=== PATIENT | male | born 1985 | race African-American/Black ===

== ENCOUNTER 2016-07-16 07:12 | Emergency (ER) | payer OTHER ==
[~2016-07-16] VITALS: Ht 188 cm; Wt 113.4 kg
[~2016-07-16 07:12] MED LIST: BENADRYL50 MG ORAL; CYCLOBENZAPRINE10 MG ORAL; IBUPROFEN600 MG ORAL; IBUPROFEN800 MG ORAL; NAPROXEN375 MG ORAL; NKM; NORCO 5-325 TA1 EACH ORAL; PERCOCET 5-3251 EACH ORAL; PREDNISONE20 MG ORAL
[2016-07-16 07:20] VITALS: BP 97/60
[2016-07-16] MEDS ORDERED: IBUPROFEN800 MG ORAL (08:07)
[2016-07-16] MEDS ORDERED: NORCO 5-325 TA1 EACH ORAL (08:07)
[2016-07-16 08:21] VITALS: BP 97/60
--- NOTE | 2016-07-16 09:03 | Emergency Room Report ---
History of Present Illness General Chief Complaint: Upper Extremity Injury Source: Patient Present Illness HPI 31-year-old male presents ED complaining of left finger pain and swelling. 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 States last night a patron twisted his left fifth finger and he heard a pop. Patient is unsure of he dislocated his finger. Notes pain and swelling to left fifth finger. Pain is throbbing, 10 out of 10, nonradiating. Unable to bend the finger. No other aggravating or relieving factors. Denies any other injuries. Denies any other associated symptoms Allergies: Coded Allergies: No Known Allergies (Unverified , 11/22/13) Patient History Past Medical History: none Past Surgical History: none Pertinent Family History: none Social History: Denies: alcohol use, drug use, smoking Immunizations: UTD Reviewed Nursing Documentation: PMH: Agreed, PSxH: Agreed Nursing Documentation-PMH Past Medical History: No Stated History Review of Systems All Other Systems: negative except mentioned in HPI Physical Exam Vital Signs Date Time Temp Pulse Resp B/P Pulse Ox O2 Delivery O2 Flow Rate FiO2 07/16/16 07:16 97.3 96 16 97/60 99 Room Air Sp02 EP Interpretation: reviewed, normal General Appearance: no apparent distress, alert, GCS 15, non-toxic Head: normocephalic Eyes: bilateral eye PERRL, bilateral eye normal inspection ENT: normal ENT inspection Neck: normal inspection Respiratory: normal inspection Cardiovascular #1: normal inspection Gastrointestinal: normal inspection Rectal: deferred Genitourinary: no CVA tenderness Musculoskeletal: swelling - L 5th finger Neurologic: alert, oriented x3, responsive, motor strength/tone normal, sensory intact, speech normal Psychiatric: normal inspection Skin: normal inspection Lymphatic: normal inspection Procedures Splinting Splinting : Consent: Verbal Hand-Made Type: plaster Splint: ulnar Pre-Proc Neuro Vasc Exam: normal Post-Proc Neuro Vasc Exam: normal Patient Tolerated: Well Complications: None Medical Decision Making Diagnostic Impression: Primary Impression: Finger fracture Qualified Codes: S62.645A - Nondisplaced fracture of proximal phalanx of left ring finger, initial encounter for closed fracture ER Course Hospital Course 31-year-old M presents to ED complaining of L finger pain/swelling Differential diagnoses include: Fracture, dislocation, sprain, contusion Clinical course Patient placed on stretcher. After initial history and physical, I ordered pain medications and Xrays of L hand Xrays prelim read shows comminuted fx of L proximal phalanx. placed in ulnar gutter Diagnosis -finger fx Stable and discharged to home with prescription for Motrin, [place]. apply ice, keep elevated. weight bear as tolerated. Followup with PMD. Return to ED if symptoms recur or worsen Other X-Ray Diagnostic Results Other X-Ray Diagnostic Results : X-Ray Ordered: L hand EP Interpretation: Yes Findings: no dislocation, other - comminuted fx proximal phalanx Number of Views: 3 Last Vital Signs Date Time Temp Pulse Resp B/P Pulse Ox O2 Delivery O2 Flow Rate FiO2 07/16/16 08:21 97.3 96 16 97/60 99 Room Air Status: improved Disposition: HOME, SELF-CARE Condition: Stable Scripts Hydrocodone Bit/Acetaminophen 5-325* (NORCO 5-325*) 1 Each Tablet 1 TAB ORAL Q6H Y for For Pain, #10 TAB 0 Refills Prov: JOLLY VELARDE M.D. 07/16/16 Ibuprofen* (MOTRIN*) 800 Mg Tablet 800 MG ORAL Q8H, #30 TAB 0 Refills Prov: JOLLY VELARDE M.D. 07/16/16 Referrals: Kb STARR,REFERRING JOSE LUIS GARRETT PERRY M.D. Patient Instructions: Finger Fracture, [id number] JOLLY VELARDE M.D. Jul 16, 2016 09:03
--- NOTE | 2016-07-16 09:05 | Diagnostic Imaging Report ---
Indication: Left hand pain Technique: Left hand 3 views Comparison: None Findings: There is a markedly comminuted fracture involving the fifth proximal phalanx with proximal intra-articular extension. Soft tissue swelling is noted. Impression: Markedly comminuted fracture involving the fifth proximal phalanx.
== END 2016-07-16 08:21 | disposition home or self-care (01) ==
LOC: EMR 07:31
DX: S62.645A Nondisplaced fracture of proximal phalanx of left ring finger, initial encounter for closed fracture (principal); W50.2XXA Accidental twist by another person, initial encounter; Y92.89 Other specified places as the place of occurrence of the external cause; Y99.0 Civilian activity done for income or pay
CPT/HCPCS: 99284

== ENCOUNTER 2017-10-29 09:30 | Emergency (ER) | payer OTHER ==
[~2017-10-29] VITALS: Ht 188 cm; Wt 117.9 kg
[2017-10-29 10:11] LABS: BASOPHILS % (AUTO) 2.3 % (0.0-2.0); HEMOGLOBIN 13.9 G/DL (14.2-18.0); LYMPHOCYTES % (AUTO) 26.9 % (20.0-45.0); MEAN CORPUSCULAR VOLUME 87 FL (80-99); MONOCYTES % (AUTO) 8.7 % (1.0-10.0); NEUTROPHILS % (AUTO) 62.1 % (45.0-75.0); PLATELET COUNT 253 K/UL (150-450); RED BLOOD COUNT 4.96 M/UL (4.70-6.10); RED CELL DISTRIBUTION WIDTH 11.8 % (11.6-14.8); WHITE BLOOD COUNT 6.6 K/UL (4.8-10.8)
[2017-10-29] MEDS ORDERED: Morphine Sulfate 4mg/ml Inj IVP ONE (10:15)
[2017-10-29] MEDS ORDERED: Isovue-300 100ml vial INJ PRN (11:00)
[2017-10-29 11:07] LABS: ANION GAP 12 mmol/L (5-15); BLOOD UREA NITROGEN 13 mg/dL (7-18); CALCIUM 8.3 MG/DL (8.5-10.1); CARBON DIOXIDE 26 MMOL/L (21-32); CHLORIDE 101 MMOL/L (98-107); CREATININE 1.1 MG/DL (0.55-1.30); POTASSIUM 3.5 MMOL/L (3.5-5.1); SODIUM 139 MMOL/L (136-145)
[2017-10-29 11:10] LABS: ALANINE AMINOTRANSFERASE 42 U/L (12-78); ALBUMIN 3.9 G/DL (3.4-5.0); ALBUMIN/GLOBULIN RATIO 1.3 (1.0-2.7); ALKALINE PHOSPHATASE 64 U/L (46-116); ASPARTATE AMINO TRANSFERASE 20 U/L (15-37); BILIRUBIN,TOTAL 0.7 MG/DL (0.2-1.0)
[2017-10-29 11:30] VITALS: BP 150/93
--- NOTE | 2017-10-29 12:02 | Emergency Room Report ---
History of Present Illness General Chief Complaint: Abdominal Pain Source: Patient Present Illness HPI This patient states that 2 days ago he developed upper abdominal pain. He states that he also had nausea and vomiting. He did admit that he had drank quite alcohol quite a bit the night before. He also smokes marijuana daily. He thought possibly that he was hung over. However, he had an interim time where he was feeling better and then the symptoms returned last night. He has had nausea, vomiting and abdominal pain. He states he has had normal bowel movements. He denies diarrhea. He denies fever or chills. He has no other complaints. Allergies: Coded Allergies: No Known Allergies (Unverified , 11/22/13) Patient History Past Medical History: none Social History: Reports: alcohol use, drug use Reviewed Nursing Documentation: PMH: Agreed; PSxH: Agreed Nursing Documentation-PMH Past Medical History: No Stated History Review of Systems All Other Systems: negative except mentioned in HPI Physical Exam Vital Signs Date Time Temp Pulse Resp B/P (MAP) Pulse Ox O2 Delivery O2 Flow Rate FiO2 10/29/17 09:33 98.0 69 18 127/79 98 Room Air 98.1 Sp02 EP Interpretation: reviewed, normal General Appearance: no apparent distress, alert, GCS 15, non-toxic Head: normocephalic, atraumatic Eyes: bilateral eye normal inspection, bilateral eye PERRL ENT: hearing grossly normal, normal pharynx, no angioedema, normal voice Neck: full range of motion, supple/symm/no masses Respiratory: chest non-tender, lungs clear, normal breath sounds, speaking full sentences Cardiovascular #1: regular rate, rhythm, no edema Gastrointestinal: normal bowel sounds, soft, non-distended, no guarding, no rebound, tenderness - TTP in the epigastrium Rectal: deferred Musculoskeletal: back normal, normal range of motion Neurologic: alert, oriented x3, responsive, motor strength/tone normal, sensory intact, speech normal Psychiatric: judgement/insight normal, memory normal, mood/affect normal, no suicidal/homicidal ideation Skin: normal color, no rash, warm/dry, well hydrated Medical Decision Making Diagnostic Impression: Primary Impression: Abdominal pain ER Course This patient has severe abdominal pain. He also had nausea or vomiting. He he regularly uses marijuana. I suspect cannabis hyperemesis syndrome. However, the patient did require IV morphine for his pain. I felt I should rule out an intra-abdominal process. He underwent CT of the abdomen and pelvis which shows no evidence of appendicitis or diverticulitis. The patient is pending ultrasound of the right upper quadrant to further assess his gallbladder. I anticipate that this will be normal. If this is the case, I anticipate discharge home with capsaicin cream and treatment for gastritis. If there is a change to this plan, an addendum will be made to this note based on results of right upper quadrant ultrasound. Laboratory Tests Test 10/29/17 09:45 White Blood Count 6.6 K/UL (4.8-10.8) Red Blood Count 4.96 M/UL (4.70-6.10) Hemoglobin 13.9 G/DL (14.2-18.0) L Hematocrit 43.0 % (42.0-52.0) Mean Corpuscular Volume 87 FL (80-99) Mean Corpuscular Hemoglobin 28.1 PG (27.0-31.0) Mean Corpuscular Hemoglobin Concent 32.4 G/DL (32.0-36.0) Red Cell Distribution Width 11.8 % (11.6-14.8) Platelet Count 253 K/UL (150-450) Mean Platelet Volume 9.2 FL (6.5-10.1) Neutrophils (%) (Auto) 62.1 % (45.0-75.0) Lymphocytes (%) (Auto) 26.9 % (20.0-45.0) Monocytes (%) (Auto) 8.7 % (1.0-10.0) Eosinophils (%) (Auto) 0.0 % (0.0-3.0) Basophils (%) (Auto) 2.3 % (0.0-2.0) H Sodium Level 139 MMOL/L (136-145) Potassium Level 3.5 MMOL/L (3.5-5.1) Chloride Level 101 MMOL/L (98-107) Carbon Dioxide Level 26 MMOL/L (21-32) Anion Gap 12 mmol/L (5-15) Blood Urea Nitrogen 13 mg/dL (7-18) Creatinine 1.1 MG/DL (0.55-1.30) Estimate Glomerular Filtration Rate > 60 mL/min (>60) Glucose Level 114 MG/DL (74-106) H Calcium Level 8.3 MG/DL (8.5-10.1) L Total Bilirubin 0.7 MG/DL (0.2-1.0) Aspartate Amino Transferase (AST) 20 U/L (15-37) Alanine Aminotransferase (ALT) 42 U/L (12-78) Alkaline Phosphatase 64 U/L (46-116) Total Protein 7.0 G/DL (6.4-8.2) Albumin 3.9 G/DL (3.4-5.0) Globulin 3.1 g/dL Albumin/Globulin Ratio 1.3 (1.0-2.7) Lipase 86 U/L (73-393) CT/MRI/US Diagnostic Results CT/MRI/US Diagnostic Results : Imaging Test Ordered: CT abd/pelvis, US RUQ Impression CT abd/pelvis: No acute findings. See official report. Last Vital Signs Date Time Temp Pulse Resp B/P (MAP) Pulse Ox O2 Delivery O2 Flow Rate FiO2 10/29/17 11:30 56 18 150/93 98 Room Air 10/29/17 09:33 98.0 98.1 Scripts No Active Prescriptions or Reported Meds Referrals: Kb STARR,REFERRING (PCP) Patient Instructions: Abdominal Pain, Adult Juany Butterfield DO Oct 29, 2017 12:02
--- NOTE | 2017-10-29 12:16 | Diagnostic Imaging Report ---
Indication: Abdominal pain Technique: CT of the abdomen and pelvis utilizing automated exposure control with intravenous contrast. Venous scanning performed. Axial, sagittal and coronal reformats presented. CT dose: Total DLP 1092.16 mGycm; CTDI vol 18.4 mGy Comparison: None. Correlation made to CT angiogram of the chest 11/25/2013 Findings: Dependent atelectasis noted in the right lower lobe. Heart size within normal limits. No pericardial effusion. There is elevation of the right hemidiaphragm. Liver is normal in size and contour. No focal hepatic mass lesion is appreciated on this single phase exam. Gallbladder is unremarkable in appearance. No CT evident gallstones or evidence of pericholecystic inflammatory change. No biliary ductal dilatation. Spleen, adrenal glands and pancreas unremarkable. A subcentimeter low-attenuation well-circumscribed lesion is noted in the midpole the right kidney too small to fully characterize but likely representing a simple renal cyst. Kidneys otherwise enhance symmetrically. No urinary tract stone or hydronephrosis bilaterally. The bladder is decompressed, limiting its evaluation. Prostate is normal in size. There is no evidence of bowel obstruction or inflammation. Apparent thickening of portions of the proximal transverse colon likely related to underdistention. Some appendicoliths are noted within the appendix, which is normal in caliber and without evidence of surrounding inflammatory change. No free intraperitoneal fluid or air. No pathologically enlarged lymphadenopathy. Abdominal aorta normal in caliber. No acute osseous abnormality seen. IMPRESSION: No evidence of bowel obstruction or inflammation. Appendicolith noted within a normal caliber appendix. No periappendiceal inflammatory change to suggest appendicitis. No urinary tract stones or hydronephrosis. Underdistention versus thickening of the bladder wall. Correlate with urinalysis. The CT scanner at [facility] is accredited by the [employer] and the scans are performed using protocols designed to limit radiation exposure to as low as reasonably achievable to attain images of sufficient resolution adequate for diagnostic evaluation.
[2017-10-29 13:03] LABS: APPEARANCE,URINE CLEAR; BILIRUBIN, URINE NEGATIVE (NEGATIVE); COLOR,URINE PALE YELLOW; GLUCOSE, URINE (UA) NEGATIVE (NEGATIVE); KETONES,URINE NEGATIVE (NEGATIVE); LEUKOCYTE ESTERASE ,URINE NEGATIVE (NEGATIVE); NITRITE,URINE NEGATIVE (NEGATIVE); PH,URINE 8 (4.5-8.0); PROTEIN,URINE NEGATIVE (NEGATIVE); UROBILINOGEN,URINE NORMAL MG/DL (0.0-1.0)
[2017-10-29 13:44] VITALS: BP 146/86
[2017-10-29] MEDS ORDERED: Capsaicin 0.075% Cream TOPIC ONE (14:15)
[2017-10-29] MEDS ORDERED: PEPCID AC20 M2 PO (14:43)
[2017-10-29] MEDS ORDERED: CAPSAICIN60 GM TP (14:43)
[2017-10-29] MEDS ORDERED: MAALOX MAXIMUM355 M1 PO (14:43)
[2017-10-29 15:30] VITALS: BP 118/76
--- NOTE | 2017-10-29 17:05 | Diagnostic Imaging Report ---
Indication: Abdominal pain Technique: US ABD Complete Comparison: Compare is made to concurrent CT of the abdomen and pelvis Findings: Imaged portions of the pancreatic head are unremarkable in appearance. The body and tail aren't seen. Liver is unremarkable. No focal hepatic mass lesion is appreciated sonographically. The portal vein is patent. Gallbladder is distended. No gallbladder wall thickening or pericholecystic fluid. No cholelithiasis. Question very mild gallbladder sludge versus artifact. No biliary ductal dilatation. The common bile duct measures 5 mm. The kidneys are symmetric in size. They demonstrate normal parenchymal echogenicity is no hydronephrosis or sonographically appreciable renal stones. Spleen is normal in size and appearance. Imaged portions of the abdominal aorta normal in caliber. No ascites IMPRESSION: Questionable minimal gallbladder sludge versus artifact. No sonographic evidence suggest acute cholecystitis. Otherwise, unremarkable abdominal sonogram.
== END 2017-10-29 15:28 | disposition home or self-care (01) ==
LOC: EMR 10:22
DX: R10.10 Upper abdominal pain, unspecified (principal); R11.2 Nausea with vomiting, unspecified; F12.90 Cannabis use, unspecified, uncomplicated
CPT/HCPCS: 36415; 74177; 76700; 80053; 81003; 83690; 85025; 96361; 96374; 96375; 99284; J2270; J2405; Q9967; S0028; 96360

== ENCOUNTER 2018-02-11 18:02 | Emergency (ER) | payer OTHER ==
[~2018-02-11] VITALS: Ht 188 cm; Wt 117.9 kg
[~2018-02-11 18:02] MED LIST changes: +CAPSAICIN60 GM TP; +MAALOX MAXIMUM355 M1 PO; +PEPCID AC20 M2 PO
[2018-02-11 18:30] VITALS: BP 142/84
[2018-02-11] MEDS ORDERED: Haloperidol 5mg/ml Inj IM ONE (18:30)
[2018-02-11] MEDS ORDERED: Morphine Sulfate 4mg/ml Inj (IV USE ONLY) IVP ONE (18:30)
--- NOTE | 2018-02-11 18:36 | Emergency Room Report ---
History of Present Illness General Chief Complaint: Abdominal Pain Source: Patient Present Illness HPI Patient 33-year-old male brought in by self after increased abdominal discomfort. Patient reported having increased epigastric burning sensation. He reports having similar symptoms in the past. He reports having the recently been diagnosed with a marijuana induced hyperemesis. Patient states that he smokes marijuana daily. Allergies: Coded Allergies: No Known Allergies (Unverified , 11/22/13) Patient History Past Medical History: see triage record Reviewed Nursing Documentation: PMH: Agreed; PSxH: Agreed Nursing Documentation-PMH Past Medical History: No History, Except For Hx Gastrointestinal Problems: Yes Review of Systems All Other Systems: negative except mentioned in HPI Physical Exam Vital Signs Date Time Temp Pulse Resp B/P (MAP) Pulse Ox O2 Delivery O2 Flow Rate FiO2 02/11/18 18:18 98.4 76 18 142/84 98 Room Air 98.4 Sp02 EP Interpretation: reviewed, normal General Appearance: normal inspection, well appearing, no apparent distress, alert Head: atraumatic ENT: normal ENT inspection, hearing grossly normal, normal voice Neck: normal inspection, full range of motion, supple, no bony tend Respiratory: normal inspection, lungs clear, normal breath sounds, no respiratory distress, no retraction, no wheezing Cardiovascular #1: regular rate, rhythm, no edema Gastrointestinal: normal inspection, normal bowel sounds, non tender, soft, no guarding, no hernia Genitourinary: no CVA tenderness Musculoskeletal: normal inspection, back normal, normal range of motion Neurologic: normal inspection, alert, oriented x3, responsive, fish checker III-XII nml as tested, speech normal Psychiatric: normal inspection, judgement/insight normal, mood/affect normal Skin: normal inspection, normal color, no rash Medical Decision Making Diagnostic Impression: Primary Impression: Cannabis hyperemesis syndrome concurrent with and due to cannabis abuse Additional Impression: Pancreatitis, acute ER Course Patient presented for abdominal pain. Differential diagnoses included ischemic bowel, appendicitis, perforated viscus, abdominal aortic aneurysm, inferior myocardial infarction, viral gastroenteritis. Because of complexity of patient' s case laboratory testing and imaging studies were ordered.The laboratory testing was notable for elevated lipase. Patient was given IV fluids as well as Haldol and morphine. The patient had improvement in his symptoms. Patient stated he felt better want to go home. Patient was a without assistance at the time of discharge. Patient was given prescription for Zyprexa for nausea if nausea recurred.The patient was advised to stay away from alcohol as well as marijuana. Patient is advised to return if he began having persistent vomiting worsening pain or other concerns. Labs Test 02/11/18 18:51 White Blood Count 11.1 K/UL (4.8-10.8) Red Blood Count 4.73 M/UL (4.70-6.10) Hemoglobin 13.6 G/DL (14.2-18.0) Hematocrit 41.4 % (42.0-52.0) Mean Corpuscular Volume 87 FL (80-99) Mean Corpuscular Hemoglobin 28.7 PG (27.0-31.0) Mean Corpuscular Hemoglobin Concent 32.8 G/DL (32.0-36.0) Red Cell Distribution Width 11.5 % (11.6-14.8) Platelet Count 249 K/UL (150-450) Mean Platelet Volume 8.5 FL (6.5-10.1) Neutrophils (%) (Auto) 80.4 % (45.0-75.0) Lymphocytes (%) (Auto) 13.5 % (20.0-45.0) Monocytes (%) (Auto) 4.3 % (1.0-10.0) Eosinophils (%) (Auto) 0.0 % (0.0-3.0) Basophils (%) (Auto) 1.8 % (0.0-2.0) Urine Color Pale yellow Urine Appearance Clear Urine pH 8 (4.5-8.0) Urine Specific [place] 1.010 (1.005-1.035) Urine Protein Negative (NEGATIVE) Urine Glucose (UA) Negative (NEGATIVE) Urine Ketones Negative (NEGATIVE) Urine Blood Negative (NEGATIVE) Urine Nitrite Negative (NEGATIVE) Urine Bilirubin Negative (NEGATIVE) Urine Urobilinogen Normal MG/DL (0.0-1.0) Urine Leukocyte Esterase Negative (NEGATIVE) Sodium Level 135 MMOL/L (136-145) Potassium Level 3.8 MMOL/L (3.5-5.1) Chloride Level 99 MMOL/L (98-107) Carbon Dioxide Level 27 MMOL/L (21-32) Anion Gap 9 mmol/L (5-15) Blood Urea Nitrogen 7 mg/dL (7-18) Creatinine 1.0 MG/DL (0.55-1.30) Estimat Glomerular Filtration Rate > 60 mL/min (>60) Glucose Level 122 MG/DL (74-106) Calcium Level 9.1 MG/DL (8.5-10.1) Total Bilirubin 0.5 MG/DL (0.2-1.0) Aspartate Amino Transf (AST/SGOT) 19 U/L (15-37) Alanine Aminotransferase (ALT/SGPT) 47 U/L (12-78) Alkaline Phosphatase 78 U/L (46-116) Total Protein 7.6 G/DL (6.4-8.2) Albumin 4.1 G/DL (3.4-5.0) Globulin 3.5 g/dL Albumin/Globulin Ratio 1.2 (1.0-2.7) Lipase 853 U/L (73-393) Last Vital Signs Date Time Temp Pulse Resp B/P (MAP) Pulse Ox O2 Delivery O2 Flow Rate FiO2 02/11/18 18:18 98.4 76 18 142/84 98 Room Air 98.4 Status: improved Disposition: HOME, SELF-CARE Condition: Stable Scripts Famotidine (PEPCID AC) 20 Mg Tablet 20 MG PO DAILY, #20 TAB Prov: Adeel Butler MD 02/11/18 Olanzapine* (ZYPREXA*) 2.5 Mg Tablet 2.5 MG ORAL DAILY for nausea, #5 TAB 0 Refills Prov: Adeel Butler MD 02/11/18 Adeel Butler MD Feb 11, 2018 18:36
[2018-02-11 19:09] LABS: APPEARANCE,URINE CLEAR; BASOPHILS % (AUTO) 1.8 % (0.0-2.0); BILIRUBIN, URINE NEGATIVE (NEGATIVE); COLOR,URINE PALE YELLOW; GLUCOSE, URINE (UA) NEGATIVE (NEGATIVE); HEMATOCRIT 41.4 % (42.0-52.0); HEMOGLOBIN 13.6 G/DL (14.2-18.0); KETONES,URINE NEGATIVE (NEGATIVE); LEUKOCYTE ESTERASE ,URINE NEGATIVE (NEGATIVE); LYMPHOCYTES % (AUTO) 13.5 % (20.0-45.0); MEAN CORPUSCULAR VOLUME 87 FL (80-99); MONOCYTES % (AUTO) 4.3 % (1.0-10.0); NEUTROPHILS % (AUTO) 80.4 % (45.0-75.0); NITRITE,URINE NEGATIVE (NEGATIVE); PH,URINE 8 (4.5-8.0); PLATELET COUNT 249 K/UL (150-450); PROTEIN,URINE NEGATIVE (NEGATIVE); RED BLOOD COUNT 4.73 M/UL (4.70-6.10); RED CELL DISTRIBUTION WIDTH 11.5 % (11.6-14.8); UROBILINOGEN,URINE NORMAL MG/DL (0.0-1.0); WHITE BLOOD COUNT 11.1 K/UL (4.8-10.8)
[2018-02-11 19:19] LABS: ANION GAP 9 mmol/L (5-15); BLOOD UREA NITROGEN 7 mg/dL (7-18); CALCIUM 9.1 MG/DL (8.5-10.1); CARBON DIOXIDE 27 MMOL/L (21-32); CHLORIDE 99 MMOL/L (98-107); POTASSIUM 3.8 MMOL/L (3.5-5.1); SODIUM 135 MMOL/L (136-145)
[2018-02-11 19:25] LABS: ALANINE AMINOTRANSFERASE 47 U/L (12-78); ALBUMIN 4.1 G/DL (3.4-5.0); ALBUMIN/GLOBULIN RATIO 1.2 (1.0-2.7); ALKALINE PHOSPHATASE 78 U/L (46-116); ASPARTATE AMINO TRANSFERASE 19 U/L (15-37); BILIRUBIN,TOTAL 0.5 MG/DL (0.2-1.0)
[2018-02-11] MEDS ORDERED: PEPCID AC20 M2 PO (20:46)
[2018-02-11] MEDS ORDERED: ZYPREXA2.5 MG ORAL (20:46)
[2018-02-11 21:00] VITALS: BP 129/74
== END 2018-02-11 21:00 | disposition home or self-care (01) ==
LOC: EMR 18:56
DX: K85.90 Acute pancreatitis without necrosis or infection, unspecified (principal); R11.10 Vomiting, unspecified; F12.10 Cannabis abuse, uncomplicated
CPT/HCPCS: 36415; 80053; 81003; 83690; 85025; 96361; 96372; 96374; 96375; 99284; J1630; J2270; S0028

== ENCOUNTER 2018-11-08 13:04 | Emergency (ER) | payer OTHER ==
[~2018-11-08] VITALS: Ht 188 cm; Wt 117.9 kg
[~2018-11-08 13:04] MED LIST changes: +ZYPREXA2.5 MG ORAL
[2018-11-08 13:49] VITALS: BP 150/102
--- NOTE | 2018-11-08 13:49 | NUR ---
ED Nurse Note:pt. came from home with c/o nausea vomiting abdominal pain, pt. is A/Ox4 ambulatory
[2018-11-08] MEDS ORDERED: DiphenhydrAMINE 50mg/ml Inj IVP ONE (14:00)
[2018-11-08] MEDS ORDERED: Metoclopramide 10mg/2ml Inj IVP ONE (14:00)
[2018-11-08 14:50] LABS: BASOPHILS % (AUTO) 1.6 % (0.0-2.0); EOSINOPHILS % (AUTO) 0.1 % (0.0-3.0); HEMATOCRIT 43.8 % (42.0-52.0); HEMOGLOBIN 14.2 G/DL (14.2-18.0); LYMPHOCYTES % (AUTO) 28.6 % (20.0-45.0); MEAN CORPUSCULAR VOLUME 86 FL (80-99); MONOCYTES % (AUTO) 8.6 % (1.0-10.0); NEUTROPHILS % (AUTO) 61.2 % (45.0-75.0); PLATELET COUNT 257 K/UL (150-450); RED BLOOD COUNT 5.07 M/UL (4.70-6.10); RED CELL DISTRIBUTION WIDTH 11.7 % (11.6-14.8); WHITE BLOOD COUNT 6.3 K/UL (4.8-10.8)
[2018-11-08 15:02] LABS: ANION GAP 8 mmol/L (5-15); BLOOD UREA NITROGEN 9 mg/dL (7-18); CALCIUM 9.3 MG/DL (8.5-10.1); CARBON DIOXIDE 27 MMOL/L (21-32); CHLORIDE 101 MMOL/L (98-107); POTASSIUM 3.2 MMOL/L (3.5-5.1); SODIUM 135 MMOL/L (136-145)
[2018-11-08 15:12] LABS: ALANINE AMINOTRANSFERASE 38 U/L (12-78); ALBUMIN/GLOBULIN RATIO 1.3 (1.0-2.7); ALKALINE PHOSPHATASE 59 U/L (46-116); ASPARTATE AMINO TRANSFERASE 15 U/L (15-37); BILIRUBIN,TOTAL 1.4 MG/DL (0.2-1.0)
[2018-11-08 15:46] LABS: BILIRUBIN,DIRECT 0.2 MG/DL (0.0-0.3)
[2018-11-08] MEDS ORDERED: ZOFRAN4 M1 ORAL (15:54)
[2018-11-08 16:07] VITALS: BP 145/88
[2018-11-08 16:20] VITALS: BP 145/88
--- NOTE | 2018-11-08 16:20 | NUR ---
ER DISCHARGE NOTE: Patient is cleared to be discharged per ERMD, pt is aox4, on room air, with stable vital signs. pt was given dc and prescription instructions, pt was able to verbalize understanding, pt id band and iv site removed without complications. pt is able to ambulate with steady gait. pt took all belongings.
--- NOTE | 2018-11-08 19:02 | Emergency Room Report ---
History of Present Illness General Chief Complaint: Abdominal Pain Source: Patient Present Illness HPI Patient presents initially with what was reported as mid abdominal pain however he reports mainly nausea vomiting He feels dehydrated patient denies any recent travel denies any chest pain or shortness of breath Denies any lower abdominal pain denies any dysuria frequency patient does use marijuana frequently and has had previous episodes such as this Denies any fevers denies any flank pain Allergies: Coded Allergies: No Known Allergies (Unverified , 11/22/13) Patient History Past Medical History: see triage record Pertinent Family History: none Reviewed Nursing Documentation: PMH: Agreed; PSxH: Agreed Nursing Documentation-PM Past Medical History: No History, Except For Hx Gastrointestinal Problems: Yes Review of Systems All Other Systems: negative except mentioned in HPI Physical Exam Vital Signs Date Time Temp Pulse Resp B/P (MAP) Pulse Ox O2 Delivery O2 Flow Rate FiO2 11/08/18 13:34 98.1 56 16 150/102 (118) 99 Room Air Sp02 EP Interpretation: reviewed, normal General Appearance: well appearing, no apparent distress Head: normocephalic, atraumatic Eyes: bilateral eye PERRL, bilateral eye EOMI ENT: hearing grossly normal, normal pharynx, TMs + canals normal, uvula midline Neck: full range of motion, supple, no meningismus, no bony tend Respiratory: lungs clear, normal breath sounds, no rhonchi, no respiratory distress, no retraction, no accessory muscle use Cardiovascular #1: normal peripheral pulses, regular rate, rhythm, no edema, no gallop, no JVD, no murmur Gastrointestinal: normal bowel sounds, non tender, soft, no mass, no organomegaly, non-distended, no guarding, no hernia, no pulsatile mass, no rebound Genitourinary: no CVA tenderness Musculoskeletal: normal inspection Neurologic: oriented x3, responsive, manufacturing plant technician III-XII nml as tested, motor strength/ tone normal, sensory intact Psychiatric: mood/affect normal Lymphatic: normal inspection, no adenopathy Medical Decision Making Diagnostic Impression: Primary Impression: vomiting ER Course With the history exam and presentation, multiple differentials considered, including but not limited to appendicitis, gastritis, cholecystitis, diverticulitis Patient's blood work is at baseline levels patient received hydration antinausea medication has rested comfortably at this time stable for close follow-up I did not feel patient met criteria for acute imaging Labs Test 11/08/18 14:30 White Blood Count 6.3 K/UL (4.8-10.8) Red Blood Count 5.07 M/UL (4.70-6.10) Hemoglobin 14.2 G/DL (14.2-18.0) Hematocrit 43.8 % (42.0-52.0) Mean Corpuscular Volume 86 FL (80-99) Mean Corpuscular Hemoglobin 28.0 PG (27.0-31.0) Mean Corpuscular Hemoglobin Concent 32.4 G/DL (32.0-36.0) Red Cell Distribution Width 11.7 % (11.6-14.8) Platelet Count 257 K/UL (150-450) Mean Platelet Volume 7.8 FL (6.5-10.1) Neutrophils (%) (Auto) 61.2 % (45.0-75.0) Lymphocytes (%) (Auto) 28.6 % (20.0-45.0) Monocytes (%) (Auto) 8.6 % (1.0-10.0) Eosinophils (%) (Auto) 0.1 % (0.0-3.0) Basophils (%) (Auto) 1.6 % (0.0-2.0) Sodium Level 135 MMOL/L (136-145) Potassium Level 3.2 MMOL/L (3.5-5.1) Chloride Level 101 MMOL/L (98-107) Carbon Dioxide Level 27 MMOL/L (21-32) Anion Gap 8 mmol/L (5-15) Blood Urea Nitrogen 9 mg/dL (7-18) Creatinine 1.0 MG/DL (0.55-1.30) Estimat Glomerular Filtration Rate > 60 mL/min (>60) Glucose Level 101 MG/DL (74-106) Calcium Level 9.3 MG/DL (8.5-10.1) Total Bilirubin 1.4 MG/DL (0.2-1.0) Direct Bilirubin 0.2 MG/DL (0.0-0.3) Aspartate Amino Transf (AST/SGOT) 15 U/L (15-37) Alanine Aminotransferase (ALT/SGPT) 38 U/L (12-78) Alkaline Phosphatase 59 U/L (46-116) Total Protein 7.0 G/DL (6.4-8.2) Albumin 4.0 G/DL (3.4-5.0) Globulin 3.0 g/dL Albumin/Globulin Ratio 1.3 (1.0-2.7) Last Vital Signs Date Time Temp Pulse Resp B/P (MAP) Pulse Ox O2 Delivery O2 Flow Rate FiO2 11/08/18 16:20 98.1 80 17 145/88 99 Room Air Status: improved Disposition: HOME, SELF-CARE Condition: Improved Scripts Ondansetron (Zofran) 4 Mg Tablet 4 MG ORAL Q6H PRN for Nausea & Vomiting for 7 Days, #12 TAB Prov: Joana aCtalan DO 11/08/18 Referrals: Kb STARR,REFERRING (PCP) Patient Instructions: Nausea and Vomiting, Adult, Hniw-ab-[id number], Cannabis Use Disorder Additional Instructions: Patient is provided with the discharge instructions notified to follow up with primary doctor in the next 2-3 days otherwise return to the er with any worsening symptoms. Please note that this report is being documented using [employer] technology. This can lead to erroneous entry secondary to incorrect interpretation by the dictating instrument. Joana Catalan DO Nov 08, 2018 19:02
== END 2018-11-08 16:20 | disposition home or self-care (01) ==
LOC: EMR 15:35
DX: R11.10 Vomiting, unspecified (principal); F12.90 Cannabis use, unspecified, uncomplicated
CPT/HCPCS: 36415; 80053; 82248; 85025; 96361; 96374; 96375; 99284; J1200; J2405; J2765

== ENCOUNTER 2018-11-24 00:51 | Emergency (ER) | payer OTHER ==
[~2018-11-24] VITALS: Ht 188 cm; Wt 115.7 kg
[~2018-11-24 00:51] MED LIST changes: +ZOFRAN4 M1 ORAL
--- NOTE | 2018-11-24 01:00 | NUR ---
ED Nurse Note: pt walked in c/o right knee pain x 5 days, pt states he was playing basketball and accidentally injured it, no obvious deformity nor contusion noted, vss, ambulatory w/ limp but steady gait noted, cms intact, will cont monitor
[2018-11-24] MEDS ORDERED: HYDROcodone/Acetamin 5/325 tab ORAL ONE (01:15)
[2018-11-24] MEDS ORDERED: HYDROCODON-ACE1 EA15 ORAL (01:34)
[2018-11-24] MEDS ORDERED: IBUPROFEN600 MG ORAL (01:34)
--- NOTE | 2018-11-24 01:35 | NUR ---
Knee brace and crutches provided, medicated for pain.Tolerated well.
--- NOTE | 2018-11-24 01:35 | Emergency Room Report ---
History of Present Illness General Chief Complaint: Lower Extremity Injury Source: Patient Present Illness HPI Is a 33-year-old male with no past medical history. He presents with right knee pain. He was playing basketball a week ago. He said he jumped and we came down he felt his knee buckle and has some pain. Few hours later started swelling up. Since then has been painful but mostly on the lateral aspect. There is some swelling. Worse with walking. Pain is 8 out of 10. No nausea no vomiting. No fever chills but no other injury. No previous injury to this area. Allergies: Coded Allergies: No Known Allergies (Unverified , 11/22/13) Patient History Past Medical History: see triage record, old chart reviewed Past Surgical History: other Pertinent Family History: none Social History: Denies: smoking Immunizations: other Reviewed Nursing Documentation: PMH: Agreed; PSxH: Agreed Nursing Documentation-PMH Hx Gastrointestinal Problems: Yes Review of Systems Eye: Denies: eye pain, blurred vision ENT: Denies: ear pain, nose congestion, throat swelling Respiratory: Denies: cough, shortness of breath Cardiovascular: Denies: chest pain, palpitations Gastrointestinal: Denies: abdominal pain, diarrhea, nausea, vomiting Musculoskeletal: Reports: joint pain; Denies: back pain Skin: Denies: rash Neurological: Denies: headache, numbness Endocrine: Denies: increased thirst, increased urine Hematologic/Lymphatic: Denies: easy bruising All Other Systems: negative except mentioned in HPI Physical Exam Vital Signs Date Time Temp Pulse Resp B/P (MAP) Pulse Ox O2 Delivery O2 Flow Rate FiO2 11/24/18 01:06 98.1 76 18 117/74 (88) 98 Room Air Vitals normal Sp02 EP Interpretation: reviewed, normal General Appearance: well appearing, no apparent distress, alert Head: normocephalic, atraumatic Eyes: bilateral eye PERRL, bilateral eye EOMI ENT: hearing grossly normal, normal pharynx Neck: full range of motion, supple, no meningismus Respiratory: chest non-tender, lungs clear, normal breath sounds Cardiovascular #1: regular rate, rhythm, no murmur Gastrointestinal: normal bowel sounds, non tender, no mass, no organomegaly, no bruit, non-distended Musculoskeletal: back normal, gait/station normal, other - Right knee: There is small amount of effusion. Tenderness to the lateral aspect of the knee. Knee is stable otherwise. Normal pulse. Sensation normal. Psychiatric: mood/affect normal Procedures Splinting Splinting : Consent: Verbal Location: Right knee Pre-Made Type: knee immobilizer Pre-Proc Neuro Vasc Exam: normal Post-Proc Neuro Vasc Exam: normal Patient Tolerated: Well Complications: None Medical Decision Making Diagnostic Impression: Primary Impression: Sprain of collateral ligament of right knee Qualified Codes: S83.401A - Sprain of unspecified collateral ligament of right knee, initial encounter ER Course Patient with a right knee sprain. Most likely a lateral collateral ligament injury. No evidence of any fracture dislocation. Will discharge home. Other X-Ray Diagnostic Results Other X-Ray Diagnostic Results : X-Ray ordered: Right knee x-rays # of Views/Limited Vs Complete: 4 View Indication: Pain EP Interpretation: Yes Interpretation: no dislocation, no soft tissue swelling, no fractures Impression: No acute disease Electronically Signed by: Miguel Jensen MD Last Vital Signs Date Time Temp Pulse Resp B/P (MAP) Pulse Ox O2 Delivery O2 Flow Rate FiO2 11/24/18 01:06 98.1 76 18 117/74 (88) 98 Room Air Status: improved Disposition: HOME, SELF-CARE Condition: Stable Scripts Ibuprofen* (MOTRIN*) 600 Mg Tablet 600 MG ORAL THREE TIMES A DAY, #30 TAB 0 Refills Prov: Miguel Jensen MD 11/24/18 Hydrocodone/Acetaminophen 5-325* (HYDROCODONE/ACETAMINOPHEN 5-325*) 1 Each Tablet 1 TAB ORAL Q6H PRN for For Pain, #10 TAB 0 Refills Prov: Miguel Jensen MD 11/24/18 Patient Instructions: Knee Sprain Additional Instructions: Elevate leg. Ice pack to the area. Use crutches as needed. If continue with problem and has pain, you may benefit from an MRI. If there is any ligament injury, you may need a referral to see a orthopedic doctor. Follow-up with your doctor in a week. Return if worse. Miguel Jensen MD Nov 24, 2018 01:35
[2018-11-24 01:39] VITALS: BP 110/74
--- NOTE | 2018-11-24 01:39 | NUR ---
ED Nurse Note: pt cleared to be d/c per ER provider, pt discharge and aftercare instruction provided w/ prescription, pt education done via discussion and handout, pt advised to follow up with pcp or return to ed if changes in condition, vss, ambulatory w/ steady gait, left w/ all belongings, knee immobilizer applied and crutches given, pt accompanied by girlfriend.
--- NOTE | 2018-11-24 14:29 | Diagnostic Imaging Report ---
Indication: Pain Knee pain/trauma 3 views of the right knee were obtained. Findings: No acute fracture, malalignment, or joint effusion are identified. Impression: Negative for acute findings.
== END 2018-11-24 01:39 | disposition home or self-care (01) ==
LOC: EMR 01:30
DX: S83.401A Sprain of unspecified collateral ligament of right knee, initial encounter (principal); X58.XXXA Exposure to other specified factors, initial encounter; Y93.67 Activity, basketball; Y92.9 Unspecified place or not applicable
CPT/HCPCS: 29505; 99283

== ENCOUNTER → 2019-07-11 | Emergency (ER) | payer OTHER ==
[~2019-07-11] VITALS: Ht 188 cm; Wt 113.4 kg
[~2019-07-11] MED LIST changes: +HYDROCODON-ACE1 EA15 ORAL
--- NOTE | 2019-07-11 13:10 | NUR ---
ED Nurse Note: Pt ambulated to ED d/t possible LT pinky finger injury.
[2019-07-11 13:32] VITALS: BP 116/68
--- NOTE | 2019-07-11 14:17 | Emergency Room Report ---
History of Present Illness General Chief Complaint: Upper Extremity Injury Present Illness HPI 34-year-old male presents to the emergency department complaining of 6 out of 10 severity pain localized to the knuckle of the left fifth digit since last night. Patient reports that he sustained injury after punching something. Patient denies open wounds/fight bites. Patient reports he did break this bone in the past and never had follow-up. Patient reports pain, tenderness, swelling and bruising. Patient reports difficulty with attempting to make a fist in the left hand. Patient denies paresthesias. He denies loss of gross motor movements or skin color changes other than bruising. Patient states he is right-hand dominant. He denies any aggravating or relieving factors. (Monalisa Nair) Allergies: Coded Allergies: No Known Allergies (Unverified , 11/22/13) Patient History Past Medical History: see triage record Past Surgical History: none Pertinent Family History: none Reviewed Nursing Documentation: PMH: Agreed; PSxH: Agreed (Monalisa Nair) Nursing Documentation-PMH Hx Gastrointestinal Problems: Yes (Monalisa Nair) Review of Systems All Other Systems: negative except mentioned in HPI (Monalisa Nair) Physical Exam Vital Signs Date Time Temp Pulse Resp B/P (MAP) Pulse Ox O2 Delivery O2 Flow Rate FiO2 07/11/19 13:00 98.2 76 22 116/68 (84) 98 Room Air Sp02 EP Interpretation: reviewed, normal General Appearance: no apparent distress, alert, GCS 15, non-toxic Head: normocephalic, atraumatic Eyes: bilateral eye normal inspection, bilateral eye PERRL ENT: hearing grossly normal, normal voice Neck: full range of motion Respiratory: lungs clear, normal breath sounds, speaking full sentences Cardiovascular #1: regular rate, rhythm, normal capillary refill Cardiovascular #2: 2+ radial (L) Musculoskeletal: normal range of motion, gait/station normal, tender - Knuckle of the left fifth digit, swelling and bruising are noted. NVI Neurologic: alert, motor strength/tone normal, oriented x3, sensory intact, responsive, speech normal, no focal defects, other - radial and ulnar nerves intact Psychiatric: judgement/insight normal Skin: Ecchymosis/Bruising - knuckle of the left 5th digit. (Monalisa Nair) Medical Decision Making PA Attestation Dr. Abdi Is my supervising Physician whom patient management has been discussed with. (Monalisa Nair) Diagnostic Impression: Primary Impression: Boxers fracture Qualified Codes: S62.339A - Displaced fracture of neck of unspecified metacarpal bone, initial encounter for closed fracture ER Course 34-year-old male presents to the emergency department complaining of 6 out of 10 severity pain localized to the knuckle of the left fifth digit since last night. Patient reports that he sustained injury after punching something. Patient denies open wounds/fight bites. Patient reports he did break this bone in the past and never had follow-up. Patient reports pain, tenderness, swelling and bruising. Patient reports difficulty with attempting to make a fist in the left hand. Patient denies paresthesias. He denies loss of gross motor movements or skin color changes other than bruising. Patient states he is right-hand dominant. He denies any aggravating or relieving factors. Ddx considered but are not limited to Fracture, dislocation, contusion, Sprain/ Strain/Spasm, Fight Bite. Vital signs: are WNL, pt. is afebrile H&PE are most consistent with musculoskeletal injury will perform imaging to r/ o fractures/dislocations. ORDERS: - X-ray Left hand 3 views - POSITIVE for 5th metacarpal fx, No Dislocation , or significant soft tissue injury, per preliminary read in ED, and signed by EVANGELISTA Nair, my supervising physician has reviewed, and agrees with my interpretation. ED INTERVENTIONS: -left ulnar gutter splint applied by pc tech. Pt. remains neurovascularly intact. - Left arm Sling applied by pc tech. Pt. remains neurovascularly intact. DISCHARGE: At this time pt. is stable for d/c to home. Will provide printed patient care instructions, and any necessary prescriptions. Care plan and follow up instructions have been discussed with the patient prior to discharge. (Monalisa Nair) Other X-Ray Diagnostic Results Other X-Ray Diagnostic Results : X-Ray ordered: Left Hand # of Views/Limited Vs Complete: 3 View Indication: Pain EP Interpretation: Yes PA Xray: Interpretation reviewed, by supervising MD, and agrees with findings. Interpretation: no dislocation, no soft tissue swelling, other - POSITIVE FOR 5th Metacarpal Fx. with some ant. angulation Impression: Other - ABNORMAL: FRACTURE Electronically Signed by: Monalisa Nair PA-C (Monalisa Nair) Other X-Ray Diagnostic Results : Electronically Signed by: Sabrina Taylor documentation of Xray reviewed by me and is accurate, Kevin Abdi MD (Kevin Abdi MD) Last Vital Signs Date Time Temp Pulse Resp B/P (MAP) Pulse Ox O2 Delivery O2 Flow Rate FiO2 07/11/19 13:32 98.2 22 116/68 98 Room Air 07/11/19 13:00 76 Status: improved (Monalisa Nair) Disposition: HOME, SELF-CARE Condition: Stable Scripts Hydrocodone Bit/Acetaminophen 5-325* ([place] 5-325*) 1 Each Tablet 1 TAB ORAL Q6H PRN for For Pain, #12 TAB 0 Refills Prov: Monalisa Nair 07/11/19 Referrals: Orthopedic Urgent Care Patient Instructions: Boxer's Fracture Additional Instructions: Take medications as directed. Do not drink alcohol, drive, or operate heavy machinery while taking [place] as this may cause drowsiness. Follow up with an [employer] [facility]PER in 3-5 days, even if your symptoms have resolved. --Please review list of primary care clinics, if you do not already have a primary care provider who can give you an Orthopedic Referral. Return sooner to ED if new symptoms occur, or current symptoms become worse. - Please note that this Emergency Department Report was dictated using [employer] assembly supervisor technology software, occasionally this can lead to erroneous entry secondary to interpretation by the dictation equipment. Monalisa Nair Jul 11, 2019 14:17 Kevin Abdi MD Jul 12, 2019 21:22
--- NOTE | 2019-07-11 14:36 | Diagnostic Imaging Report ---
Indication: Pain Technique: 3 views left hand Comparison: none Findings: There is an anteriorly angulated fracture of the fifth metacarpal neck. No other acute fractures. Previously demonstrated proximal phalangeal fracture has healed. Impression: Positive for fifth metacarpal neck fracture
--- NOTE | 2019-07-11 14:53 | NUR ---
ED Nurse Note: Left ulnar gutter splint with sling applied by Ralph Joseph RN.
[2019-07-11 15:02] VITALS: BP 116/68
--- NOTE | 2019-07-11 15:02 | NUR ---
ER DISCHARGE NOTE: Patient is cleared to be discharged per ERMD, pt is aox4, on room air, with stable vital signs. pt was given dc and prescription instructions, pt was able to verbalize understanding, pt id band removed. pt is able to ambulate with steady gait. pt took all belongings.
== END | disposition home or self-care (01) ==
LOC: EMR 15:00
DX: S62.337A Displaced fracture of neck of fifth metacarpal bone, left hand, initial encounter for closed fracture (principal); W22.8XXA Striking against or struck by other objects, initial encounter; Y93.9 Activity, unspecified; Y92.9 Unspecified place or not applicable
CPT/HCPCS: 29125; 73130; Z7502; 99283